=== PATIENT | female | born 1990 | race Two or more races ===

== ENCOUNTER 2018-07-18 15:04 | Emergency (ER) | payer MEDICAID ==
[~2018-07-18] VITALS: Ht 160 cm; Wt 73.0 kg
[2018-07-18] MEDS ORDERED: KETOROLAC 30MG/ML VIAL IV STA (17:05)
[2018-07-18 18:39] VITALS: BP 113/76
== END 2018-07-18 18:32 | disposition home or self-care (01) ==
LOC: ER 15:04
DX: S70.11XA Contusion of right thigh, initial encounter (principal); V03.90XA Pedestrian on foot injured in collision with car, pick-up truck or van, unspecified whether traffic or nontraffic accident, initial encounter; Y93.01 Activity, walking, marching and hiking; Y92.410 Unspecified street and highway as the place of occurrence of the external cause; R03.0 Elevated blood-pressure reading, without diagnosis of hypertension
CPT/HCPCS: 73552; 76881; 96374; 99284; J1885